=== PATIENT | male | born 1930 | race Caucasian/White ===

== ENCOUNTER → 2018-04-17 | Outpatient (CLI) | payer OTHER ==
[~2018-04-17] MED LIST: AEC81 PO; CHOL100040 PO; DOXA4TAB3 PO; FINA5TAB41 PO; FOLI0.4T2 PO; LISI10TA7 PO; METO-408 PO; RIVA15TA PO; SIMV10TA6 PO; [UNRECOGNIZED DRUG - CODE] PO; biotin PO; vision formula PO
== END | disposition home or self-care (01) ==
LOC: SHCH 15:48
PROVIDERS: ATTEND Internal Medicine Cardiovascular Disease
DX: R07.9 Chest pain, unspecified (principal); I51.7 Cardiomegaly; Z95.1 Presence of aortocoronary bypass graft
CPT/HCPCS: 93306